=== PATIENT | female | born 1945 | race Caucasian/White ===

== ENCOUNTER → 2017-11-20 | Outpatient (CLI) | payer MEDICARE, OTHER ==
[~2017-11-20] MED LIST: ASPIR 8181 MG PO; B12INJ IM; ELIQUIS2.5 MG PO; FOLIC ACID1 MG PO; LIPITOR10 MG PO; MOBIC15 MG PO; NASACORT10.8 ML NASAL; NEURONTIN100 MG PO; NEXIUM40 MG PO; NOHOMEMEDICATIONS; OMEPRAZOLE40 MG PO; OXYBUTYNIN 5 MG5 M2 PO; TRAMADOL 50 MG50 MG PO; VITAMIN B-12500 MCG PO; VITAMIN D1000 UNI1 PO; ZANTAC 150MG T150 MG PO
--- NOTE | 2017-12-20 17:50 | EKG ---
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
== END ==
LOC: M.NUC 11-16 09:13
DX: M25.561 Pain in right knee (principal)

== ENCOUNTER 2017-12-31 06:06 | Inpatient (IN) | payer MEDICARE, OTHER ==
[2017-12-20 10:58] LABS: APTT 27.2 Seconds (25.0-31.3); PROTIME 10.1 Seconds (9.20-11.50)
[~2017-12-31] VITALS: Ht 172.7 cm; Wt 92.5 kg
[~2017-12-31 06:06] MED LIST changes: -ELIQUIS2.5 MG PO; -ZANTAC 150MG T150 MG PO
[2017-12-31] MEDS ORDERED: OMEPRAZOLE40 MG PO (06:24)
[2017-12-31] MEDS ORDERED: ZANTAC 150MG T150 MG PO (06:25)
[2017-12-31 06:44] VITALS: BP 129/69
[2017-12-31 12:28] VITALS: BP 151/61
[2017-12-31 16:00] VITALS: BP 143/66
[2017-12-31 21:30] VITALS: BP 119/52
[2018-01-01] VITALS (7 sets, daily range): BP systolic 101–157; BP diastolic 45–79
[2018-01-01 05:12] LABS: HEMOGLOBIN 9.7 gm/dL (12.0-15.0)
[2018-01-01 12:22] LABS: RBC 3.39 mil/uL (4.20-5.00); WBC 11.7 thou/uL (4.0-11.0)
[2018-01-01 12:23] LABS: ABSOLUTE BASOPHILS 0.1 thou/uL (0.0-0.2); ABSOLUTE LYMPHOCYTES 1.2 thou/uL (0.8-5.3); ABSOLUTE MONOCYTES 1.4 thou/uL (0.0-1.2); BASOPHILS 1.2 %; LYMPHOCYTES 10.1 %; MCH 28.6 pg (26.0-34.0); MCHC 32.7 g/dL (28.0-37.0); MCV 87.4 fL (80.0-100.0); MONOCYTES 11.8 %; MPV 8.8 fl. (7.2-11.1); PLATELET COUNT* 203 thou/uL (150-400); POLYS 76.9 %; RDW-CV 14.3 % (10.5-14.5)
[2018-01-01 16:05] LABS: URINE BILIRUBIN NEGATIVE (Negative); URINE BLOOD TRACE (Negative); URINE CLARITY CLEAR; URINE COLOR YELLOW; URINE GLUCOSE-RANDOM NEGATIVE (Negative); URINE KETONES NEGATIVE (Negative); URINE LEUKOCYTES 3+ (Negative); URINE NITRITE POSITIVE (Negative); URINE PROTEIN NEGATIVE (Negative); URINE SPECIFIC GRAVITY <= 1.005 (1.005-1.030); URINE UROBILINOGEN 0.2 E.U./dl (0.2-1.0)
[2018-01-01 16:19] LABS: BACTERIA >30 Many /HPF (None Seen)
[2018-01-01 16:20] LABS: CASTS None Seen /LPF (None Seen); CRYSTALS None Seen /LPF (None Seen); MUCUS None Seen strn/LPF (None Seen); SQUAMOUS 4-10 Moderate /LPF (0-3)
[2018-01-01 16:21] LABS: URINE RBC 0-2 Rare /HPF (0-2); URINE WBC >25 Many /HPF (0-5)
[2018-01-02 04:03] VITALS: BP 116/64
[2018-01-02 05:21] LABS: HEMOGLOBIN 9.5 gm/dL (12.0-15.0)
[2018-01-02 07:40] VITALS: BP 104/56
[2018-01-02] MEDS ORDERED: ELIQUIS2.5 MG PO (09:53)
[2018-01-02] MEDS ORDERED: TRAMADOL 50 MG50 MG PO (09:53)
[2018-01-02 09:56] VITALS: BP 104/56
--- NOTE | 2018-02-03 22:25 | OP ---
[facility] [address] [place] [address] OPERATIVE REPORT Name: HALLEY ONOFRE Room: [address]#: [id number] Admission: 12/31/17 Attend Phys: Alejandro Bob Discharge: 01/02/18 Date of : 47 Report #: [id number] THIS REPORT FOR: //name// CC: Brian Leon DATE OF SERVICE: 12/31/2017 PREOPERATIVE DIAGNOSIS: Aseptic loosening, right total knee. POSTOPERATIVE DIAGNOSIS: Aseptic loosening, right total knee. PROCEDURE PERFORMED: Revision of right total knee arthroplasty. PRIMARY SURGEON: Brian Dias DO. AUTOMATION CONTROLS ENGINEER: Alonso Bennett DO SECOND EMBEDDED SYSTEMS DEVELOPER: Ivan Bernal DO. ANESTHESIA: General with local capsular block and a regional nerve block. ESTIMATED BLOOD LOSS: 200 mL. SPECIMENS: None. COMPLICATIONS: None. ANTIBIOTICS: 600 mg clindamycin preop. TOURNIQUET TIME: 108 minutes to 300 mmHg. IMPLANTS: 1. Biomet 360 knee system. A 60 mm femur with a 2.5 mm offset and 15 x 40 mm adjusto writer operator stem. 2. A size 71 tibial tray with a 15 mm medial augment and a 13 x 80 mm stem. 3. A 14 mm posterior stabilized tibial bearing. INDICATIONS: The patient is a 72-year-old female who has been seen in our clinic multiple times regarding her right knee pain. She unfortunately had a fall a few years ago and had a substance of her tibial tray on her right total knee, this went on to heal uneventfully; however, she did have loosening of her tibial component and she has had continued pain. Since that time, she underwent a bone scan showing loosening of her tibial component knee prosthesis. All signs of infection have been ruled out. [place] [address] OPERATIVE REPORT Name: HALLEY ONOFRE Room: [address] IN [facility].#: [id number] Admission: 12/31/17 Attend Phys: Alejandro Bob Discharge: 01/02/18 Date of : 47 Report #: [id number] above-mentioned procedure. Risks, benefits, complications and alternatives of surgery have been reviewed and discussed with her and she is wishing to proceed. DESCRIPTION OF PROCEDURE: The patient was taken to OR suite, placed supine on the table. She was given benefit of general anesthetic, well-padded tourniquet was placed in the right upper thigh. The patient was then prepped and draped in the usual sterile fashion. Prior to the procedure, time-out was taken to confirm correct site, patient, procedure, and procedure began elevating the tourniquet up to 300 mmHg. A midline incision was made through her prior incision. Dissection was carried down through subcutaneous tissues to the level of the joint capsule. A second knife was used to perform a medial parapatellar arthrotomy exposing the right knee joint. Normal joint fluid was encountered. There was local synovitis, but no gross purulence or any signs of infection. A medial periosteal sleeve was released of the tibia. The patella was everted and the knee was brought up into flexion. Debulking of the synovium of the superior aspect of the knee was performed. The femoral component appeared to be well fixed; however, the tibial component had subsided and was grossly loose. The polyethylene liner did have some wear on the prost. No other signs of failure. Using flexible osteotomes, the femoral component was removed from the polyethylene liner and tibial tray. These were all easily extracted with minimal bone loss. All excess soft tissue debris and fibrous tissue were cleared off both the distal femur and proximal tibia. We proceeded with intramedullary reaming. The tibial canal was reamed up to a size 13 mm stem to a depth of 80 mm. The proximal tibial cutting block was pinned in place. There was a significant amount of bone loss on the medial side due to her prior fracture. A 1 mm bone was resected off the lateral tibia. Due to the bone loss, it was elected to re-put a 15 mm augment. A 15 mm offset cut was performed on the medial side to accommodate for the augment as well. Next, the trial tibial tray was pinned in place. This was done using a drop raina referencing the medial third tibial tubercle and mid talus. Appropriate rotation was dialed and the tibial tray was overreamed and keel punch was then placed. We then proceeded to the femur. Femoral canal was reamed up to a size 15 and a depth of 80 mm trial femur was placed. It was elected to offset this 2.5 mm to accommodate her anatomy. Prior to that, a distal femur cut was made as well, resecting 1 mm of additional bone. We then placed a 4-in-1 cutting block as offset 2.5 mm from the femoral stem. This was pinned in place. Anterior cut and anterior chamfer cuts were made. No additional bone was resected on the posterior condyle cut or posterior chamfer cut. We then performed our box cut using the cutting guide, followed by reaming the distal femur to accommodate for our offset. A trial femur was then placed followed by 14 mm spacer. The patella was thoroughly inspected and free of any significant wear. No signs of loosening. Therefore, it was not elected to resurface this. The knee was taken through range of motion. Patella was tracking well and we were able to achieve full extension with a 14 mm trial spacer. Intraoperative x-rays were also taken to assess our stem positions on our implants. All implants appeared in good alignment and position on intraoperative x-ray. All [address] [address] OPERATIVE REPORT Name: HALLEY ONOFRE Room: [address]#: [id number] Admission: 12/31/17 Attend Phys: Alejandro Bob Discharge: 01/02/18 Date of : 47 Report #: [id number] trial components were then removed and assembled on the back table. The knee was thoroughly irrigated and the bone surfaces were cleared for cementing. Cement was mixed on the back table. Final implants were placed beginning with the tibial tray and followed by the distal femur. All excess cement was removed. A 14 mm insert was used for compression during cement hardening. The knee was held in a single position until cement had adequately cured. The final 14 mm posterior stabilized tibial tray was then placed and secured in position with locking bar. Knee was taken through range of motion. Patella was tracking well. The tourniquet was let down for a total time of 108 minutes. Hemostasis was obtained. Posterior capsular block was performed. TXA was placed in the wound. Capsule was closed with interrupted #1 Vicryl, followed by a 2-0 Vicryl for subcuticular and sharla for skin. Sterile dressings were applied. The patient tolerated the procedure well. All sponge and needle counts correct x 2. The patient was transferred to PACU in good stable condition. <ELECTRONICALLY SIGNED> By: Brian Dias DO 02/03/18 2225 [id number] [id number] Dias DO /nt
== END 2018-01-02 14:10 | disposition home health service (06) | DRG 467 ==
LOC: EDSTATUS 06:06 → M.EXTOP 06:09 → M.ORTHSURG 06:09 → EDSTATUS 06:21 → M.ORTHSURG 06:23 → M.SUR 06:52 → EDSTATUS 09:16 → M.TBA 11:10 → M.EXTOP 11:10 → M.ORTHSURG 11:10 → M.TBA 11:58 → M.ORTHSURG 12:19 → M.EXTOP 17:39 → M.ORTHSURG 17:39
PROVIDERS: Internal Medicine; Orthopaedic Surgery; ADMIT Internal Medicine
DX: T84.032A Mechanical loosening of internal right knee prosthetic joint, initial encounter (principal); D62 Acute posthemorrhagic anemia; N39.0 Urinary tract infection, site not specified; K21.9 Gastro-esophageal reflux disease without esophagitis; Y83.8 Other surgical procedures as the cause of abnormal reaction of the patient, or of later complication, without mention of misadventure at the time of the procedure; Y92.89 Other specified places as the place of occurrence of the external cause; Z88.0 Allergy status to penicillin; Z88.2 Allergy status to sulfonamides; Z88.8 Allergy status to other drugs, medicaments and biological substances; Z88.1 Allergy status to other antibiotic agents; Z91.012 Allergy to eggs

== ENCOUNTER → 2018-10-08 | Outpatient (CLI) | payer MEDICARE, OTHER ==
[~2018-10-08] MED LIST changes: +ELIQUIS2.5 MG PO; +ZANTAC 150MG T150 MG PO
== END ==
LOC: M.RAD 09:00
DX: N91.2 Amenorrhea, unspecified (principal); Z78.0 Asymptomatic menopausal state

== ENCOUNTER 2019-04-01 07:49 | Inpatient (IN) | payer MEDICARE, OTHER ==
[~2019-04-01] VITALS: Ht 142.2 cm; Wt 88.0 kg
[2019-04-01 10:56] VITALS: BP 127/56
[2019-04-01 12:03] LABS: HEMATOCRIT 34.1 % (37.0-47.0); HEMOGLOBIN 11.6 gm/dL (12.0-15.0); MCH 29.4 pg (26.0-34.0); MCHC 34.1 g/dL (28.0-37.0); MCV 86.2 fL (80.0-100.0); MPV 10.5 fl. (7.2-11.1); NUCLEATED RBCS 0 /100WBC; RBC 3.95 mil/uL (4.20-5.00); RDW-CV 13.1 % (10.5-14.5); WBC 7.3 thou/uL (4.0-11.0)
[2019-04-01 12:05] LABS: PLATELET COUNT* 11 thou/uL (150-400)
[2019-04-01 12:14] LABS: CALCIUM 9.4 mg/dL (8.5-10.1); POTASSIUM 4.6 mmol/L (3.5-5.1)
[2019-04-01 12:18] LABS: ALBUMIN 3.8 g/dL (3.4-5.0); TOTAL BILIRUBIN 0.5 mg/dL (<0.1-1.0); TOTAL PROTEIN 7.2 g/dL (6.4-8.2)
[2019-04-01 12:27] LABS: APTT 24.5 Seconds (25.0-31.3); PROTIME 10.4 Seconds (9.20-11.50)
[2019-04-01] MEDS ORDERED: ALLEGRA ALLERG180 MG PO (12:27)
[2019-04-01] MEDS ORDERED: GLUCOSAMINE HC500 MG PO (12:27)
[2019-04-01 12:37] LABS: ABSOLUTE EOSINOPHILS 0.2 thou/uL (0.0-0.7); ABSOLUTE LYMPHOCYTES 1.3 thou/uL (0.8-5.3); ABSOLUTE MONOCYTES 0.2 thou/uL (0.0-1.2); ABSOLUTE NEUTROPHILS 5.5 thou/uL (1.6-8.1); PLATELET ESTIMATE DECREASED
[2019-04-01 12:39] LABS: ANISOCYTOSIS 1+; POIKILOCYTOSIS 1+
[2019-04-01 12:40] LABS: LARGE PLATELETS RARE
[2019-04-01 16:26] VITALS: BP 120/46
[2019-04-01 16:48] LABS: URINE BILIRUBIN NEGATIVE (Negative); URINE BLOOD NEGATIVE (Negative); URINE CLARITY CLEAR; URINE COLOR YELLOW; URINE GLUCOSE-RANDOM NEGATIVE (Negative); URINE KETONES NEGATIVE (Negative); URINE LEUKOCYTES-REFLEX NEGATIVE (Negative); URINE NITRITE-REFLEX NEGATIVE (Negative); URINE PROTEIN NEGATIVE (Negative); URINE SPECIFIC GRAVITY <= 1.005 (1.005-1.030); URINE UROBILINOGEN 0.2 E.U./dl (0.2-1.0)
--- NOTE | 2019-04-01 16:54 | NUR ---
ASSESSMENT COMPLETE. PT ADMITTED WITH THROMBOCYTOPENIA. PT IS ALERT AND ORIENTED X4. PT DENIES PAIN. PLATELETS CRITICAL AT 11. HEMATOCOLOGY CONSULT CALLED. STAT LABS COMPLETED. PER PATHOLOGY WITH LAB WE ARE NOT TRANSFUSING PLATELETS BUT WILL COTINUE TO MONITOR, TYPE AND SCREEN COMPLETE AND TRANSFUSION CONSENT SIGNED. MRSA AND UA SENT TO LAB. PT IS UP STANDBY ASSIST. PT EDUCATED ON HIGH RISK OF BLEEDING. IV FLUIDS INFUSING. PT DENIES ANY NEEDS AT THIS TIME. TOLERATING MEALS. VSS. SEE ASSESSMENT AND VITALS FOR OTHER DETAILS. CALL LIGHT WITHIN REACH, WILL CONTINUE PLAN OF CARE
[2019-04-01 21:00] VITALS: BP 128/58
[2019-04-02 02:10] LABS: HEMOGLOBIN 11.4 g/dL (11.1-15.9)
--- NOTE | 2019-04-02 06:17 | NUR ---
PATIENT SLEPT MOST OF THE NIGHT. IV FLUIDS CONTINUE TO INFUSE AT 50 ML/HR. PATIENT HAD NO COMPLAINTS OF PAIN. WILL CONTINUE TO MONITOR.
[2019-04-02 07:55] VITALS: BP 139/57
[2019-04-02 09:50] LABS: ABSOLUTE BASOPHILS 0.1 thou/uL (0.0-0.2); ABSOLUTE EOSINOPHILS 0.1 thou/uL (0.0-0.7); ABSOLUTE LYMPHOCYTES 1.1 thou/uL (0.8-5.3); ABSOLUTE MONOCYTES 0.4 thou/uL (0.0-1.2); ABSOLUTE NEUTROPHILS 4.5 thou/uL (1.6-8.1); BASOPHILS 0.9 %; EOSINOPHILS 2.1 %; HEMATOCRIT 32.7 % (37.0-47.0); MCH 29.3 pg (26.0-34.0); MCHC 33.8 g/dL (28.0-37.0); MCV 86.8 fL (80.0-100.0); MONOCYTES 5.9 %; MPV 10.1 fl. (7.2-11.1); NUCLEATED RBCS 0 /100WBC; POLYS 73.1 %; RBC 3.76 mil/uL (4.20-5.00); RDW-CV 13.2 % (10.5-14.5); WBC 6.1 thou/uL (4.0-11.0)
[2019-04-02 09:53] LABS: PLATELET COUNT* 39 thou/uL (150-400)
--- NOTE | 2019-04-02 13:45 | NUR ---
PT.UP IN CHAIR EATING LUNCH. SHE WAS ALERT AND ORIENTED. SHE SAID SHE LIVES ALONE. HER DAUGHTER IS IN AND OUT ALL THE TIME. PT.IS INDEPENDENT. 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 NO USE OF DME. HAD [facility] LAST YEAR AFTER KNEE REPLACEMENT SURGERY. THIS PAST OCT HAD AN EYE INJURY AND HAD TO HAVE SURGERY X2 ON HER L EYE. SHE SAID IT DID LEAVE SOME RETINAL SCARRING. ONLY HAS MINIMAL LOSS OF VISION. CM WILL FOLLOW FOR DISCHARGE.
--- NOTE | 2019-04-02 17:17 | NUR ---
PATIENT RESTING UP IN CHAIR. PATIENT IS UP AD SOLOMON IN ROOM. PATIENT DENIES ANY PAIN. PATIENT HAS GOOD APPETITE. PATIENT STARTED ON PREDNISONE TODAY ORDERED. PATIENT DENIES ANY NEEDS AT THIS TIME. CALL LIGHT WITHIN REACH. WILL CONTINUE TO MONITOR.
[2019-04-02 20:00] VITALS: BP 148/79
[2019-04-03 04:03] LABS: ABSOLUTE LYMPHOCYTES 1.5 thou/uL (0.8-5.3); ABSOLUTE MONOCYTES 0.7 thou/uL (0.0-1.2); ABSOLUTE NEUTROPHILS 7.2 thou/uL (1.6-8.1); BASOPHILS 0.4 %; EOSINOPHILS 0.2 %; HEMATOCRIT 29.1 % (37.0-47.0); LYMPHOCYTES 15.8 %; MCH 29.6 pg (26.0-34.0); MCHC 34.3 g/dL (28.0-37.0); MCV 86.3 fL (80.0-100.0); MONOCYTES 7.8 %; MPV 9.1 fl. (7.2-11.1); NUCLEATED RBCS 0 /100WBC; PLATELET COUNT* 102 thou/uL (150-400); POLYS 75.8 %; RBC 3.38 mil/uL (4.20-5.00); RDW-CV 13.3 % (10.5-14.5); WBC 9.5 thou/uL (4.0-11.0)
--- NOTE | 2019-04-03 06:26 | NUR ---
PATIENT SLEPT MOST OF THE NIGHT. IV REMAINS SALINE LOCKED. PATIENT HAD NO COMPLAINTS OF PAIN. PATIENT IS POSSIBLY GOING HOME TODAY. WILL CONTINUE TO MONITOR.
[2019-04-03 08:40] VITALS: BP 139/65
[2019-04-03] MEDS ORDERED: OMEPRAZOLE40 MG PO (09:33)
[2019-04-03] MEDS ORDERED: PREDNISONE 10 M10 MG PO (09:33)
[2019-04-03 10:48] VITALS: BP 139/65
--- NOTE | 2019-04-03 11:39 | NUR ---
PATIENT UP AD SOLOMON AROUND ROOM WITHOUT DIFFICULTY. IV DC'D WITH DISCHARGE ORDERS. ONC HERE THIS AM TO SEE PATIENT AND OK TO DC. PATIENT VERBALIZES UNDERSTANDING OF PAPERWORK AND SCRIPTS. PATIENT TAKEN OUT WITH ALL BELONGINGS, AMBULATORY WITH NURSING STAFF.
== END 2019-04-03 11:41 | disposition home or self-care (01) | DRG 813 ==
LOC: M.3W 07:49
PROVIDERS: Internal Medicine Hematology & Oncology; ADMIT Internal Medicine
DX: D69.3 Immune thrombocytopenic purpura (principal); M19.90 Unspecified osteoarthritis, unspecified site; Z96.653 Presence of artificial knee joint, bilateral; E53.8 Deficiency of other specified B group vitamins; Z88.0 Allergy status to penicillin; Z88.2 Allergy status to sulfonamides; Z88.8 Allergy status to other drugs, medicaments and biological substances; Z88.6 Allergy status to analgesic agent; Z88.1 Allergy status to other antibiotic agents; Z91.012 Allergy to eggs; Z91.040 Latex allergy status; Z79.899 Other long term (current) drug therapy

== ENCOUNTER → 2020-10-27 | Outpatient (CLI) | payer MEDICARE, OTHER ==
[~2020-10-27] MED LIST changes: +ALLEGRA ALLERG180 MG PO; +GLUCOSAMINE HC500 MG PO; +PREDNISONE 10 M10 MG PO
== END ==
LOC: M.ULTRA 09:45
PROVIDERS: ATTEND Registered Nurse Diabetes Educator
DX: I65.23 Occlusion and stenosis of bilateral carotid arteries (principal)